=== PATIENT | male | born 1950 | race Caucasian/White ===

== ENCOUNTER 2023-05-12 11:06 | Outpatient (RCR) | payer MEDICARE, SELFPAY | END 2023-05-12 23:59 | disposition home or self-care (01) | LOC: RPT 11:06 | PROVIDERS: ATTENDING PHYSICIAN Family Medicine | DX: M79.605 Pain in left leg (principal); Z96.652 Presence of left artificial knee joint | CPT/HCPCS: 97110; 97162 ==

== ENCOUNTER 2023-06-02 10:51 | Outpatient (RCR) | payer MEDICARE, SELFPAY | END 2023-06-02 23:59 | disposition home or self-care (01) | LOC: RPT 10:51 | PROVIDERS: ATTENDING PHYSICIAN Family Medicine | DX: M79.605 Pain in left leg (principal); Z73.6 Limitation of activities due to disability; G20.A1 Parkinson's disease without dyskinesia, without mention of fluctuations; Z96.652 Presence of left artificial knee joint | CPT/HCPCS: 97110 ==

== ENCOUNTER → 2024-02-10 06:23 | Day surgery (SDC) | payer MEDICARE, SELFPAY | LOC: GI 06:23 | PROVIDERS: ATTENDING PHYSICIAN Student in an Organized Health Care Education/Training Program | DX: Z12.11 Encounter for screening for malignant neoplasm of colon (principal); K62.5 Hemorrhage of anus and rectum; R19.5 Other fecal abnormalities; D12.3 Benign neoplasm of transverse colon; D12.4 Benign neoplasm of descending colon; K62.89 Other specified diseases of anus and rectum | CPT/HCPCS: 45385; 88305 ==

== ENCOUNTER 2024-03-08 06:24 | Outpatient (RCR) | payer SELFPAY | END 2024-03-08 23:59 | disposition home or self-care (01) | LOC: ROT 06:24 | PROVIDERS: ATTENDING PHYSICIAN Family Medicine | DX: Z02.4 Encounter for examination for driving license (principal) ==

== ENCOUNTER → 2024-06-14 08:22 | Outpatient (REF) | payer MEDICARE, SELFPAY ==
[2024-06-14 09:12] LABS: % Basophils 0.6 % (0-2); % Immature Granulocytes 0.3 % (0-0.5); % Lymphocytes 20.1 % (20.5-51.1); % Monocytes 6.1 % (1.7-9.3); % Neutrophils 71.9 % (42.2-75.2); Absolute Eosinophils 0.1 10^3/uL (0-0.7); Absolute Lymphocytes 1.4 10^3/uL (1.2-3.4); Absolute Monocytes 0.4 10^3/uL (0.1-0.6); Hematocrit 43.3 % (39.0-52.0); Hemoglobin 15.3 g/dL (13.0-18.0); Mean Corp Hgb Conc. 35.3 g/dL (33.0-37.0); Mean Corpuscular Hgb 33.5 pg (27.0-31.0); Mean Corpuscular Volume 94.7 fL (80.0-94.0); Mean Platelet Volume 8.9 fL (7.4-10.4); Nucleated Red Blood Cells % 0 % (-); Platelet Count 262 10^3/uL (130-400); Red Blood Cell Count 4.57 10^6/uL (4.70-6.10); Red Cell Dist. Width 13.4 % (11.5-14.5); White Blood Cell Count 6.9 10^3/uL (4.8-10.8)
[2024-06-14 09:26] LABS: Glycohemoglobin (HgbA1c) 5.9 % (4.0-5.6)
[2024-06-14 10:15] LABS: TSH Reflex To Free T4 1.56 uIU/ml (0.47-4.68)
[2024-06-14 10:19] LABS: ALT (SGPT) 11 U/L (0-50); AST (SGOT) 26 U/L (17-59); Albumin 4.6 g/dl (3.5-5.0); Alkaline Phosphatase 46 U/L (38-126); Blood Urea Nitrogen 19 mg/dl (9-20); Calcium 9.8 mg/dl (8.4-10.2); Carbon Dioxide 26 mmol/L (22-30); Chloride 104 mmol/L (98-107); Glucose 120 mg/dl (70-99); HDL Cholesterol 55 mg/dl; LDL Cholesterol, Calculated 82 mg/dl; Potassium 4.3 mmol/L (3.5-5.1); Sodium 138 mmol/L (135-145); Total Bilirubin 1.3 mg/dl (0.2-1.3); Total Cholesterol 161 mg/dl (50-199); Total Protein 7.4 g/dl (6.3-8.2); Triglyceride 121 mg/dl (10-149); Very Low Density Lipoprotein 24 mg/dl (0-30); eGFR > 60.00
== END ==
LOC: REG 08:22
PROVIDERS: ATTENDING PHYSICIAN Family Medicine
DX: R73.01 Impaired fasting glucose (principal); F33.2 Major depressive disorder, recurrent severe without psychotic features; E78.00 Pure hypercholesterolemia, unspecified
CPT/HCPCS: 36415; 80053; 80061; 83036; 84443; 85025

== ENCOUNTER 2024-10-28 11:02 | Emergency (ER) | payer MEDICARE, SELFPAY ==
[2024-10-28 11:09] VITALS: BP 145/82
--- NOTE | 2024-10-28 12:10 | ED.GENMED ---
History of Present Illness
General
Chief Complaint: Musculo-Skeletal Complaint
Time Seen by Provider: 10/28/24 11:28
History of Present Illness
History of Present Illness:
74-year-old male without significant past medical history presenting to the emergency department with right knee pain. Patient reports last week he was working out on a stationary bike and believes that he was on the bike for too long. He has
since some pain to the medial aspect of the right knee. Has been able to walk on it, however does note some pain. Has been taking Tylenol Motrin for pain. Denies numbness or tingling to the lower extremity. Denies any fever. Denies injuries to
the right knee in the past, does have a left knee replacement. Denies additional norris medical complaint
Past History
Past History
ED Past Medical History: Other (Depression)
Social History
Tobacco: Non-smoker
Alcohol: None
Family History
Family History: Negative Diabetes, Hypertension or CAD
Phy Exam
Physical Exam
Physical Exam:
General: Well-appearing, no clinical signs of dehydration, nontoxic and in no acute distress
HEENT: protecting airway
Neck: appears supple
CV: Normal heart rate
Resp: No accessory muscle use, no increased work of breathing
Abd: No distention
Extremities: No deformities, no swelling, no erythema. Range of motion to the right lower extremity is intact. Distal sensation and pulses intact. Focal tenderness to the medial aspect of the distal knee. No ecchymosis. No warmth.
Neuro: alert, no focal neurologic deficit
: deferred
Rectal: deferred
Psych: Normal affect
Skin: Intact
Course
Orders/Labs/Results
Orders:
Orders
10/28/24 11:05
Knee, Right 4 or More Views [CR Knee- Right 4 Or More View*] Urgent
Comment:
Reason For Exam: pain injury
Vital Signs
Initial and Last Documented VS:
Initial Vital Signs
Temp Pulse Resp BP Pulse Ox
98.5 F 64 18 145/82 98
10/28/24 11:09 10/28/24 11:09 10/28/24 11:09 10/28/24 11:09 10/28/24 11:09
Last Documented Vital Signs
Temp Pulse Resp BP Pulse Ox
98.5 F 64 18 145/82 98
10/28/24 11:09 10/28/24 11:09 10/28/24 11:09 10/28/24 11:09 10/28/24 12:11
MDM/Problems Addressed
MDM/Problems Addressed:
74-year-old male presenting for right knee pain after injury on a stationary bike. Vital signs are normal.
On exam patient is resting comfortably, no acute distress or discomfort. Patient is ranging his knee without any type of difficulty, without concern for fracture. No significant swelling or effusion. No infectious findings, no warmth erythema.
No neurovascular compromise. Suspect mild tendinitis with focal tenderness to the medial aspect of the knee. X-ray obtained, no fracture or malalignment. Will place Guzman bandage. Otherwise feel stable for discharge with outpatient orthopedic
follow-up and supportive therapy.
*Pulse Oximetry
SaO2: 98
Oxygen Mode of Delivery: Room air
Patient hypoxic: no
*Critical Care Note
Total Time (30-74mins, 75-104mins- exclusive of procedures): Not Applicable
ED Attending Note
-
Portions of this chart may have been created with voice recognition software.� Occasional wrong word or��sound alike� substitutions may have occurred due to the inherent limitations of voice recognition software.
Discharge Plan
Departure
Prescriptions:
No Action
multivitamin [Daily Vitamin] 1 EACH tablet
1 ea PO DAILY
lamotrigine [Lamictal] 200 MG tablet
200 mg PO DAILY
simvastatin 10 MG tablet
10 mg PO DAILY
escitalopram oxalate 20 MG tablet
20 mg PO DAILY
Referrals:
UNKNOWN - PT DOES,NOT KNOW [Family Provider]
Interventions
Interventions:
*Risk Screen - Suicide Last Done: 10/28/24 11:09
*General Assessment Last Done: 10/28/24 11:09
*Neglect/Abuse Screening Last Done: 10/28/24 11:09
*ED- Fall Risk Assessment Last Done: 10/28/24 11:09
*ED COVID-19 Vaccine History Last Done: 10/28/24 11:09
Discharge Date and Time
Print Language: [id number]
== END 2024-10-28 12:45 | disposition home or self-care (01) ==
LOC: EMR 11:02
PROVIDERS: EMERGENCY PHYSICIAN Student in an Organized Health Care Education/Training Program
DX: M25.561 Pain in right knee (principal); X50.0XXA Overexertion from strenuous movement or load, initial encounter
CPT/HCPCS: 99283; 73564